=== PATIENT | female | born 1935 | race Caucasian/White ===

== ENCOUNTER 2019-02-21 17:32 | Emergency (ER) | payer MEDICARE, OTHER ==
[~2019-02-21] VITALS: Ht 167.6 cm; Wt 54.5 kg
[2019-02-21] MEDS ORDERED: ACETAMINOPHEN TAB 650MG DOSE (2X325MG) PO ONE ×2 (18:00→22:30)
[2019-02-21] MEDS ORDERED: ONDANSETRON 4MG/2ML VIAL (J2405) IV ONE (18:00)
[2019-02-21 18:02] LABS: BASO % 0.2 % (0.0-1.0); EOS % 0.2 % (0.0-3.0); HEMATOCRIT 32.5 % (36.0-47.0); HEMOGLOBIN 10.2 g/dl (12.0-15.5); LYMPH # 0.5 10^3/uL (1.5-4.5); LYMPH % 4.5 % (24.0-44.0); MEAN CORPUSCULAR HEMOGLOBIN 27.6 pg (27.0-33.0); MEAN CORPUSCULAR HGB CONC 31.4 g/dl (32.0-36.5); MEAN CORPUSCULAR VOLUME 88.1 fl (80.0-96.0); MONO # 0.5 10^3/uL (0.0-0.8); MONO % 4.6 % (0.0-5.0); NEUTROPHILS # 9.6 10^3/uL (1.8-7.7); NEUTROPHILS % 90.1 % (36.0-66.0); PLATELET COUNT, AUTOMATED 171 10^3/uL (150-450); RED BLOOD COUNT 3.69 10^6/uL (4.00-5.40); WHITE BLOOD COUNT 10.6 10^3/uL (4.0-10.0)
[2019-02-21 18:13] LABS: INR 1.3; PROTHROMBIN TIME 15.9 SECONDS (11.8-14.0)
[2019-02-21 18:14] LABS: PARTIAL THROMBOPLASTIN TIME 33.4 SECONDS (25.0-38.4)
[2019-02-21] MEDS ORDERED: PRAV40TA2 PO (18:25)
[2019-02-21] MEDS ORDERED: METO1TAB32 PO (18:25)
[2019-02-21] MEDS ORDERED: XARE15TA PO (18:25)
[2019-02-21] MEDS ORDERED: FERR325T3 PO (18:25)
[2019-02-21] MEDS ORDERED: ISOVUE-370 76% 100ML VIAL (Q9967) As Ordered ONE (18:34)
[2019-02-21 18:35] LABS: ALBUMIN 3.5 GM/DL (3.2-5.2); ALT/SGPT 33 U/L (12-78); AMYLASE 91 U/L (25-115); BILIRUBIN,DIRECT 0.2 MG/DL (0.0-0.2); BILIRUBIN,TOTAL 0.4 MG/DL (0.2-1.0); CK-MB VALUE MASS < 1.0 NG/ML (<3.6); CPK CREATINE PHOSPHOKINASE 46 U/L (26-192); LIPASE 147 U/L (73-393); MB/CK RELATIVE INDEX 2.17 (< OR =4); TOTAL PROTEIN 6.8 GM/DL (6.4-8.2); TROPONIN I < 0.02 NG/ML (< 0.10)
--- NOTE | 2019-02-21 19:44 | ECGEPIP ---
[facility] - ED Test Date: 2019-02-21 Pat Name: CASEY BUTCHER Department: Room: - Gender: Female Self [employer]: TC : [id number] Requested By: AVIVA Lopez Order Number: [id number] Reading MD: Dominic Perez Measurements Intervals [place] Rate: 78 P: 60 IA: 218 QRS: 20 QRSD: 97 T: 47 QT: 474 QTc: 541 Interpretive Statements SINUS RHYTHM WITH FIRST DEGREE AV BLOCK LEFT VENTRICULAR HYPERTROPHY AND ST-T CHANGE NONSPECIFIC ST T WAVE CHANGES LATERAL LEADS VS ISCHEMIA BASELINE ARTIFACT MAY AFFECT READING BASELINE WANDERING MAY AFFECT READING PROLONGED QTC CLINICAL CORRELATION ADVISED NO PRIOR ECG FOR COMPARISON Electronically Signed on 02-21-2019 19:44:24 EDT by Dominic Perez
--- NOTE | 2019-02-21 20:00 | REPVR ---
EXAM: CT Abdomen and Pelvis With Contrast EXAM DATE/TIME: 02/21/2019 6:41 PM CLINICAL HISTORY: 83 years old, female; Abdominal pain; Generalized; Additional info: Abd pain TECHNIQUE: Imaging protocol: Axial computed tomography images of the abdomen and pelvis with intravenous contrast. Coronal and sagittal reformatted images were created and reviewed. Radiation optimization: All CT scans at this facility use at least one of these dose optimization techniques: automated exposure control; mA and/or kV adjustment per patient size (includes targeted exams where dose is matched to clinical indication); or iterative reconstruction. Contrast material: ISOVUE 370;Contrast volume: 100 ml;Contrast route: IV; COMPARISON: No relevant prior studies available. FINDINGS: Lungs: Thin reticular opacities noted at both lung bases. Heart: Moderate cardiomegaly. Mediastinum: Small sliding hiatal hernia. Liver: . No mass. Gallbladder and bile ducts: 1.3 cm simple surgical clips in the gallbladder fossa. The gallbladder is absent. Pneumobilia and a central intrahepatic ducts. Pancreas: Normal. No ductal dilation. Spleen: Splenic calcifications are present. Adrenals: Normal. No mass. Kidneys and ureters: Simple cyst in the upper and midpole of the left kidney measuring 3.9 cm in diameter. 7 mm hyperdense cyst in the upper pole left kidney (31H) 1.5 cm Simple cyst in the midportion of the right kidney posteriorly. 3.5 cm simple cyst in the upper pole the right kidney. Stomach and bowel: Sigmoid colonic diverticulosis. Mild wall thickening suggested of the hepatic flexure and proximal transverse colon which is relatively decompressed. Moderate to large amount of stool noted in the remainder of the colon. Appendix: No evidence of appendicitis. Intraperitoneal space: Normal. No free air. No significant fluid collection. Vasculature: Normal. No abdominal aortic aneurysm. Lymph nodes: Normal. No enlarged lymph nodes. Bladder: Unremarkable as visualized. Reproductive: The uterus is absent. Bones/joints: Generalized decrease in bone density. Degenerative changes of the lumbosacral junction. Narrowing of the L4-5 and L5-S1 intervertebral disc space. 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 IMPRESSION: 1. No acute findings 2. Pneumobilia. This could be related to previous sphincterotomy. Clinical correlation needed. 3. Bilateral renal cysts. A 7 mm lesion in the upper pole left kidney is hyperdense.Recommend CT without and with contrast or MR without and with contrast at 6 months and 12 months, then yearly for 5 years. 4. Sigmoid colonic diverticulosis. No diverticulitis seen. 5. Mild wall thickening of the hepatic flexure and proximal transverse colon may be related to decompression. Clinical correlation needed. The remainder of the bowel contains a moderate to large amount of stool 6. Small sliding hiatal hernia. 7. 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
[2019-02-21 20:45] VITALS: BP 91/52
[2019-02-21] MEDS ORDERED: NS 1,000 ML IV ONE (20:45)
--- NOTE | 2019-02-22 06:44 | ED PDOC ---
Post-Departure Follow-Up certified letter sent to pt re formal read of ct abdp. see results. needs to be faxed to a pcp. find out who pcp is and fax. if no pcp refer to [facility], provide number and then fax to [facility]. Dominic Rodrigez MD Feb 22, 2019 06:44
--- NOTE | 2019-02-23 11:59 | REP ---
AP PORTABLE CHEST: 02/21/2019. Comparison: Lung windows from CT abdomen and pelvis 02/21/2019. Clinical history: Fever. Finding: Lungs are well inflated. There is some linear fibrotic change retroareolar left lower lobe as seen on the radiograph between the left heart and aorta. There is no effusion, dense consolidation with air bronchograms or parenchymal mass. Heart moderately large with left atrial and ventricular enlargement. The aorta is tortuous. Airway is intact. There is no widening of the mediastinum. Bones demineralized with degenerative changes, apical pleural scarring noted. Impression: 1. Some linear fibrotic changes in the left base retrocardiac region without dense consolidation or pleural effusion. 2. Left atrial and ventricular enlargement with mild cardiomegaly but no pulmonary edema. 3. Aortic tortuous but without gross aneurysm. 4. Degenerative changes in the spine and demineralization. Electronically Signed by Zeus Flores MD 02/23/2019 12:18 P
== END 2019-02-21 22:40 | disposition home or self-care (01) ==
LOC: M ED 17:32
DX: A08.4 Viral intestinal infection, unspecified (principal); I44.0 Atrioventricular block, first degree; I51.7 Cardiomegaly; I48.91 Unspecified atrial fibrillation; I10 Essential (primary) hypertension; Q25.46 Tortuous aortic arch; M51.9 Unspecified thoracic, thoracolumbar and lumbosacral intervertebral disc disorder; M81.0 Age-related osteoporosis without current pathological fracture; K83.8 Other specified diseases of biliary tract; N28.1 Cyst of kidney, acquired; K57.30 Diverticulosis of large intestine without perforation or abscess without bleeding; K59.00 Constipation, unspecified; K44.9 Diaphragmatic hernia without obstruction or gangrene; N90.7 Vulvar cyst; Z79.02 Long term (current) use of antithrombotics/antiplatelets; Z79.899 Other long term (current) drug therapy; Z88.5 Allergy status to narcotic agent
CPT/HCPCS: 71045; 74177; 80047; 80076; 81001; 82150; 82550; 82553; 83605; 83690; 84484; 85025; 85610; 85730; 87040; 87088; 87186; 93005; 93041; 96374; 99285; J2405; Q9967